=== PATIENT | female | born 1995 | race Hispanic/Latino ===

== ENCOUNTER 2018-06-02 09:05 | Emergency (ER) | payer OTHER ==
[2018-06-02 09:34] LABS: APPEARANCE,URINE Cloudy (CLEAR); BILIRUBIN,URINE Negative (NEGATIVE); COLOR,URINE Yellow (YELLOW); GLUCOSE, URINE (UA) Negative (NEGATIVE); KETONES,URINE Negative (NEGATIVE); LEUKOCYTE ESTERASE ,URINE Trace (NEGATIVE); NITRATE,URINE Negative (NEGATIVE); OCCULT BLOOD,URINE Large (NEGATIVE); PROTEIN,URINE POS 2+ (NEGATIVE)
[2018-06-02 09:37] LABS: HCG,QUAL RESULT NEGATIVE (NEGATIVE)
[2018-06-02] MEDS ORDERED: ONDANSETRON ODT 4 MG TAB ONE (09:48)
[2018-06-02 09:55] LABS: BACTERIA,URINE Few /HPF (None Seen)
[2018-06-02] MEDS ORDERED: KETOROLAC TROMETHAMINE 60 MG/2 ML VIAL ONE (10:02)
[2018-06-02] MEDS ORDERED: HYDROCODONE/ACETAMINOPHEN 10/325 MG TAB ONE (10:02)
== END 2018-06-02 11:32 | disposition home or self-care (01) ==
LOC: EDH 09:05
DX: N23 Unspecified renal colic (principal); Z87.442 Personal history of urinary calculi
CPT/HCPCS: 74176; 81001; 81025; 96372; 99284; J1885